=== PATIENT | male | born 1950 | race Caucasian/White ===

== ENCOUNTER 2023-12-04 15:57 | Emergency (ER) | payer OTHER, MEDICARE, BC ==
[2023-12-04] MEDS ORDERED: SODIUM CHLORIDE 0.9% 1,000 ML BAG ONE (17:00)
[2023-12-04] MEDS ORDERED: KETOROLAC 15 MG/ML 1 ML VIAL ONE (18:31)
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
== END 2023-12-04 19:48 | disposition home or self-care (01) ==
LOC: EC 15:57
DX: K80.20 Calculus of gallbladder without cholecystitis without obstruction (principal)
CPT/HCPCS: 70450; 71045; 71260; 72125; 72170; 74177; 93005; 96360; 96372; 99284